=== PATIENT | female | born 1995 ===

== ENCOUNTER 2023-04-30 07:13 | Inpatient (IN) | payer OTHER ==
[~2023-04-30] VITALS: Ht 147.3 cm; Wt 3.2 kg
[2023-04-30] MEDS ORDERED: ADULT LOW DOSE81 M1 PO (08:18)
[2023-04-30] MEDS ORDERED: PRENATAL TABLE1 EAC1 PO (08:18)
[2023-04-30 09:08] LABS: URINE APPEARANCE Cloudy; URINE BILIRRUBIN Negative (NEGATIVE); URINE BLOOD Small; URINE COLOR Yellow; URINE EPITHELIAL CELLS 93.6 uL (0.0-38.8); URINE GLUCOSE Negative (NEGATIVE); URINE LEUKOCYTE Small; URINE NITRATE Negative; URINE PROTEIN 30 (NEGATIVE); URINE RBC 8.7 uL (0.0-20.8); URINE WBC 219.2 uL (0.0-23.2)
[2023-04-30 09:11] LABS: HEMATOCRIT 32.5 % (36.0-45.00); HEMOGLOBIN 10.9 g/dL (12.0-15.00); MEAN CELL VOLUME 81.1 fL (80.00-100.00); MEAN CORPUSCULAR HEMOGLOBIN 27.3 pg (27.00-32.0); MEAN CORPUSCULAR HGB CONC 33.6 g/dl (32.0-36.0); PLATELET COUNT 311 K/uL (150-450); RED CELL DISTRIBUTION WIDTH 15.3 % (11.5-14.5)
[2023-04-30 10:00] LABS: INR < 0.93; PARTIAL THROMBOPLASTIN TIME 26.4 SECONDS (22.0-34.0)
[2023-04-30 10:12] LABS: PROTHROMBIN TIME 9.6 SECONDS (9.0-11.5)
[2023-04-30 15:16] LABS: ABG PH 7.199 (7.35-7.45)
[2023-04-30 15:17] LABS: ABG PO2 14.1 mmHg (80-100); ABG pCO2 71.3 mmHg (35-45); BASE EXCESS -2.8 mmol/l; BICARBONATE 27.2 mmol/l (23-25); SaO2 11.6 %; Tco2 29.4 mmol/l; o2 21 %
[2023-04-30 16:02] LABS: HEMATOCRIT 28.9 % (36.0-45.00); HEMOGLOBIN 9.6 g/dL (12.0-15.00); MEAN CELL VOLUME 81.1 fL (80.00-100.00); MEAN CORPUSCULAR HEMOGLOBIN 26.9 pg (27.00-32.0); MEAN CORPUSCULAR HGB CONC 33.1 g/dl (32.0-36.0); PLATELET COUNT 305 K/uL (150-450); RED BLOOD COUNT 3.56 M/uL (4.00-6.00)
== END 2023-05-02 15:38 | disposition home or self-care (01) | DRG 788 ==
LOC: LDR 07:13 → O/R 11:07 → OB/GYN 13:02
PROVIDERS: ADMIT Obstetrics & Gynecology; ATTEND Obstetrics & Gynecology
PROC: 4A1HXCZ Monitoring of Products of Conception, Cardiac Rate, External Approach (ICD-10-PCS; 2023-04-30)
PROC: 10D00Z1 Extraction of Products of Conception, Low, Open Approach (ICD-10-PCS; principal; 2023-04-30 13:15)
DX: O36.8330 Maternal care for abnormalities of the fetal heart rate or rhythm, third trimester, not applicable or unspecified (principal); O99.824 Streptococcus B carrier state complicating childbirth; Z3A.39 39 weeks gestation of pregnancy; Z37.0 Single live birth; Z20.822 Contact with and (suspected) exposure to COVID-19